=== PATIENT | male | born 1970 | race Caucasian/White ===

== ENCOUNTER 2018-08-25 16:10 | Emergency (ER) | payer OTHER ==
[~2018-08-25] VITALS: Ht 175.3 cm; Wt 90.3 kg
[2018-08-25 16:29] LABS: ABSOLUTE EOSINOPHILS 0.1 thou/uL (0.0-0.7); ABSOLUTE LYMPHOCYTES 1.2 thou/uL (0.8-5.3); ABSOLUTE MONOCYTES 0.6 thou/uL (0.0-1.2); ABSOLUTE NEUTROPHILS 8.3 thou/uL (1.6-8.1); BASOPHILS 0.3 %; EOSINOPHILS 1.3 %; HEMATOCRIT 51.5 % (42.0-52.0); HEMOGLOBIN 18.1 gm/dL (14.0-18.0); LYMPHOCYTES 11.8 %; MCH 31.8 pg (26.0-34.0); MCHC 35.2 g/dL (28.0-37.0); MCV 90.5 fL (80.0-100.0); MPV 8.4 fl. (7.2-11.1); NUCLEATED RBCS 0 /100WBC; PLATELET COUNT* 248 thou/uL (150-400); POLYS 80.6 %; RDW-CV 13.4 % (10.5-14.5); WBC 10.3 thou/uL (4.0-11.0)
[2018-08-25 16:43] LABS: INR 0.9; PROTIME 9.3 Seconds (9.20-11.50)
[2018-08-25 16:45] LABS: ANION GAP 8 mmol/L (7-16); BUN 14 mg/dL (7-18); CALCIUM 9.3 mg/dL (8.5-10.1); CHLORIDE 104 mmol/L (98-107); CO2 27 mmol/L (21-32); GLUCOSE 134 mg/dL (70-99); POTASSIUM 3.8 mmol/L (3.5-5.1); SODIUM 139 mmol/L (136-145)
[2018-08-25 16:51] LABS: ALBUMIN 4.1 g/dL (3.4-5.0); ALKALINE PHOSPHATASE 116 U/L (46-116); LIPASE 105 U/L (73-393); SGOT 22 U/L (15-37); SGPT 30 U/L (30-65); TOTAL BILIRUBIN 0.7 mg/dL (<0.1-1.0); TOTAL PROTEIN 7.7 g/dL (6.4-8.2); TROPONIN-I LEVEL <0.06 ng/mL (<0.06)
[2018-08-25 20:01] VITALS: BP 114/87
--- NOTE | 2018-08-26 09:51 | EKG ---
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1970 Requested By: Juni Heath Order Number: [id number] MD: Ming Cummins Measurements Intervals [place] Rate: 132 P: 23 [place]: 133 QRS: 203 QRSD: 91 T: 22 QT: 316 QTc: 468 Interpretive Statements Sinus tachycardia Right axis deviation Abnormal R-wave progression, late transition Baseline wander in lead(s) III No previous ECG available for comparison Electronically Signed On 08-26-2018 9:51:42 JINGLE WRITER by Ming Cummins [email or web address] <ELECTRONICALLY SIGNED> By: Ming Cummins MD, [facility] 08/26/18 0951 1614 1614 Ming Cummins MD, FACC /EPI
--- NOTE | 2018-08-26 09:52 | EKG ---
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
== END 2018-08-25 20:03 | disposition home or self-care (01) ==
LOC: M.ERS 16:10
PROVIDERS: Emergency Medicine Emergency Medical Services
DX: R00.0 Tachycardia, unspecified (principal)

== ENCOUNTER → 2018-09-02 | Outpatient (CLI) | payer OTHER ==
[2018-09-02 13:01] LABS: CHOLESTEROL 173 mg/dL (<200); HDL CHOLESTEROL 33 mg/dL (>40); LDL CHOLESTEROL 106 mg/dL (<100); TC:HDL 5.2 Ratio (Not establshd); TRIGLYCERIDE 172 mg/dL (<150); VLDL 34 mg/dL (<40)
[2018-09-02 13:04] LABS: SERUM ASSESSMENT c
== END ==
LOC: M.LAB 12:11
PROVIDERS: Internal Medicine Cardiovascular Disease
DX: I47.1 Supraventricular tachycardia (principal)